=== PATIENT | female | born 2000 | race Two or more races ===

== ENCOUNTER 2025-08-19 09:35 | Outpatient (AMB) | payer OTHER, SELFPAY ==
--- NOTE | 2025-08-19 09:39 | A.OFFPC_ITS ---
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 Intake Note: New pateint visit Copper Plater Required: No Allergies aprepitant (From Emend) Allergy (Severe, Verified 08/19/25 09:51) almost azithromycin (From Zithromax Z-Sunil) Allergy (Severe, Verified 08/19/25 09:51) Hives fosaprepitant (From Emend) Allergy (Severe, Verified 08/19/25 09:51) almost Tobacco use date assessed: 08/19/25 Dental Screening Dental Screen Date: 08/19/25 Did you have a dental visit in the last 12 months?: No Did you have a dental problem in the last 6 months where you did not have access to dental care?: Yes Was dental information given to patient?: Patient has dentist HPI HPI Comments History of Present Illness Details The 24 year old female with a past medical history of asthma, depression, allergies presenting to establish care/CPE Heme/Onc: Follows with Dr Martinez for Hodgkins Lymphoma. Lymph node removed 2023. Port installed : Underwent chemo. Asthma: Quiet. On albuterol as needed which has been a few years. Depression/anxiety: On sertraline 100mg daily. Follows with therapist. PHQ is high-23 but says she is doing alright and does not want to consider medication at this time Colonoscopy 2010 Pneumovax 2023, Prevnar 2023 Tdap 2019 ROS CONSTITUTIONAL: Denies weight loss, fever and chills. HEENT: Denies changes in vision and hearing. RESPIRATORY: Denies SOB and cough. CV: Denies palpitations and CP GI: Denies abdominal pain, nausea, vomiting and diarrhea. : Denies dysuria and urinary frequency. MSK: Denies new myalgia and joint pain. SKIN: Denies rash and pruritus. NEUROLOGICAL: Denies headache PSYCHIATRIC: Denies recent changes in mood. PHYSICAL EXAM: GENERAL: Alert and oriented x 3. NAD EYES: EOMI. Anicteric. HENT: Moist mucous membranes. No scleral icterus. No cervical lymphadenopathy. LUNGS: Clear to auscultation bilaterally. CARDIOVASCULAR: Regular rate and rhythm. No murmur. No JVD. ABDOMEN: Soft, non-tender +bs EXTREMITIES: No edema. Non-tender. SKIN: No rashes or lesions. Warm. NEUROLOGIC: No focal neurological deficits. CN II-XII grossly intact PSYCHIATRIC: Cooperative. Appropriate mood and affect PFSH Family History Other FH: mental illness Social History Housing: House Alcohol intake: never Patient Tobacco Use Status: Never used Tobacco e-Cigarette/Vaping Use: Never Used Second Hand Smoke Exposure: No service: No Current occupational status: employed Current occupation: Teaching Current occupational exposures/hazards: No Cognitive needs: No Hearing needs: No Questionnaire PHQ-9 Over the last 2 weeks, how often have you been bothered by any of the following problems? 1. Little interest or pleasure in doing things: nearly every day 2. Feeling down, depressed, or hopeless: nearly every day 3. Trouble falling or staying asleep, or sleeping too much: nearly every day 4. Feeling tired or having little energy: nearly every day 5. Poor appetite or overeating: nearly every day 6. Feeling bad about yourself - or that you are a failure or have let yourself or your family down: nearly every day 7. Trouble concentrating on things, such as reading the newspaper or watching television: nearly every day 8. Moving or speaking so slowly that other people could have noticed. Or the opposite - being so fidgety or restless that you have been moving around a lot more than usual: several days 9. Thoughts that you would be better off or of hurting yourself in some way: several days Total score: 23 Depression Screening Interpretation: Positive Depression Screening Done: Yes 97583 - PHQ-9 Billing: Yes Source: Developed by Drs. Manjinder Varner, Carey Marx, Giancarlo Nolen and colleagues, with an educational renaldo from [employer]. Thrive Questionnaire Date Thrive assessed: 08/15/25 I am a: Patient What is your living situation today?: I have a steady place to live Within the past 12 months, did the food you bought not last and you didn't have the money to get more?: Never true Within the past 12 months, did you worry whether your food would run out before you got money to buy more?: Never true Do you have trouble paying for medicines?: No Do you have trouble getting transportation to medical appointments?: No Do you have trouble paying your heating and electricity bill?: No Do you have trouble taking care of your child, family member or friend?: No Do you have trouble with day-to-day activities such as bathing, preparing meals, shopping, managing finances, etc.?: No Are you currently unemployed and looking for a job?: No Are you interested in more education?: No Please select the resources that you would like help with: None Currently or been in a relationship where the following occur: No concerns reported THRIVE Score: 0 AUDIT C Alcohol Use Questionnaire (AUDIT-C) 1. How often do you have a drink containing alcohol?: Never 3. How often do you have six or more drinks on one occasion?: Never Total Score: 0 SAVANNAH-7 AMB Questionnaire SAVANNAH-7 Date SAVANNAH - 7 assessed: 08/19/25 Feeling nervous, anxious, or on edge: 3 = Nearly every day Not being able to stop or control worryin = Several days Worrying too much about different things: 3 = Nearly every day Trouble relaxin = Nearly every day Being so restless that it is hard to sit still: 3 = Nearly every day Becoming easily annoyed or irritable: 3 = Nearly every day Feeling afraid as if something awful might happen: 2 = More than half the days Total SAVANNAH-7 score (0-4 normal; 5-9 mild; 10-14 moderate; 15-21 severe): 18 Source: Developed by Drs. Manjinder Varner, Carey Marx, Giancarlo Nolen and colleagues, with an educational renaldo from [employer]. SAVANNAH-7 Assessment Billing SAVANNAH-7 Assessment Tool: SAVANNAH-7 Assessment 53645 Physical exam (Primary Care) Vital Signs: Last Vital Signs Temp 98 F 08/19/25 09:44 Pulse 94 08/19/25 09:44 Resp 12 08/19/25 09:44 BP 106/74 08/19/25 09:44 Pulse Ox 99 08/19/25 09:44 Oxygen Delivery Method Room Air 08/19/25 09:44 BMI result Body Mass Index 20.2 Tobacco/Smoking Status: Tobacco use Status Tobacco use date assessed 08/19/25 08/19/25 09:51 Patient Tobacco Use Status Never used Tobacco 08/19/25 09:59 e-Cigarette/Vaping Use Never Used 08/19/25 09:59 PHQ-9: PHQ-9 Score PHQ-9: Total score 23 08/19/25 09:53 Depression Screening Interpretation: Positive Thrive Assessment: Date of Thrive Assessment Date Thrive assessed 08/15/25 08/19/25 09:51 Currently or been in a relationship where the following occur: No concerns reported Coding Level of Care Code New Pt Prev Care 18-39yr([id number] Diagnoses Physical exam Z00.00 Recurrent major depressive disorder, in partial remission F33.41 Active/Remission status: in partial remission Depression Type: major depressive disorder Major depression recurrence: recurrent History of Hodgkin's lymphoma Z85.71 Additional Codes SAVANNAH-7 Assessment Billing - SAVANNAH-7 Assessment Tool: SAVANNAH-7 Assessment [id number] ([id number]) PHQ-9 - 06019 - PHQ-9 Billing: Yes ([id number]) Assessment & Plan Assessment & Plan (1) Physical exam: Code(s): Z00.00 - Encounter for general adult medical examination without abnormal findings (2) Depression: Code(s): F32.A - Depression, unspecified Category: Medical Qualifiers: Active/Remission status: in partial remission Depression Type: major depressive disorder Major depression recurrence: recurrent Qualified Code(s): F33.41 - Major depressive disorder, recurrent, in partial remission (3) History of Hodgkin's lymphoma: Comment: in remission Code(s): Z85.71 - Personal history of Hodgkin lymphoma Category: Medical Plan 24 year old presenting to establish care/CPE Past medical, surgical, social reviewed Preventive measures for age discussed Depression is stable on sertraline. Refill sent. 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
[2025-08-19 09:44] VITALS: BP 106/74; PULSE 94; RESP 12; TEMP 36.6; O2SAT 99; BMI 20.2
== END 2025-08-19 10:12 | disposition home or self-care (01) ==
LOC: HO.HMCFM 09:36
PROVIDERS: PCP Internal Medicine; Visit Provider Internal Medicine
DX: Z00.00 Encounter for general adult medical examination without abnormal findings (principal); F33.41 Major depressive disorder, recurrent, in partial remission; Z85.71 Personal history of Hodgkin lymphoma

== ENCOUNTER → 2025-08-19 09:35 | Outpatient (BNVA) | payer OTHER, SELFPAY | PROVIDERS: PCP Internal Medicine; Visit Provider Internal Medicine | DX: Z00.00 Encounter for general adult medical examination without abnormal findings (principal); F33.41 Major depressive disorder, recurrent, in partial remission; Z85.71 Personal history of Hodgkin lymphoma | CPT/HCPCS: 96127 ==